=== PATIENT | female | born 1950 | race Hispanic/Latino ===

== ENCOUNTER 2018-09-11 13:33 | Emergency (ER) | payer BC | END 2018-09-11 16:10 | disposition home or self-care (01) | LOC: ERS 13:33 | DX: H53.9 Unspecified visual disturbance (principal); J45.909 Unspecified asthma, uncomplicated; F32.9 Major depressive disorder, single episode, unspecified; Z79.899 Other long term (current) drug therapy | CPT/HCPCS: 99283 ==

== ENCOUNTER 2020-06-14 07:02 | Outpatient (CLI) | payer BC, MEDICARE ==
[2020-06-14 18:44] LABS: Bilirubin Neg (Negative); Blood, Urine Negative (Negative); Glucose, Urine (Dipstick) Normal (Negative); Ketone, Urine 5 mg/dL (Negative); Leukocyte Negative (Negative); Nitrite Negative (Negative); Protein, Urine (Dipstick) Negative (Neg-Trace); Specific Gravity, Urine 1.015 (1.002-1.036); Urobilinogen Normal mg/dL (Less than 2); pH, Urine 6.5 (5.0-9.0)
[2020-06-14 18:59] LABS: #Basophils 0.1 10x3/uL (0.0-0.2); #Eosinphils 0.2 10x3/uL (0.0-0.5); #Monocytes 0.9 10x3/uL (0.0-1.1); #Neutrophils 4.5 10x3/uL (1.5-8.4); %Basophils 0.8 % (0.0-2.0); %Eosinophils 3.1 % (0.0-6.0); %Lymphocytes 27.4 % (18.0-47.0); %Monocytes 11.2 % (0.0-10.0); %Neutrophils 56.6 % (40.0-75.0); Hemoglobin 13.2 g/dL (12.0-16.0); Mean Corpuscular Hemoglobin 29.9 PG (27.0-33.0); Mean Corpuscular Volume 90.5 fl (80.0-100.0); Mean Platelet Volume 9.7 fl (7.4-10.4); Platelet Count 291 10x3/uL (130-400); RBC Distribution Width 14.2 % (11.5-14.5); Red Blood Cell (RBC) Count 4.42 10x6/uL (3.90-5.20); White Blood Cell (WBC) Count 7.9 10x3/uL (4.5-11.0)
[2020-06-14 19:06] LABS: Bacteria/HPF 1+ HPF (None Seen); RBC/HPF 0-3 HPF (0-3); WBC/HPF 0-3 HPF (0-3)
[2020-06-14 19:07] LABS: Mucous/LPF Rare LPF (<2+)
[2020-06-14 19:15] LABS: Anion Gap 19 mmol/L (10-20); BUN (Urea Nitrogen) 16 mg/dL (9.8-20.1); Calc. Creatinine Clearance 0 mL/min (70-130); Calcium 9.3 mg/dL (7.8-10.44); Carbon Dioxide 23 mmol/L (23-31); Chloride 102 mmol/L (98-107); Estimated GFR-MDRD 69; Glucose 112 mg/dL (80-115); Potassium 4.2 mmol/L (3.5-5.1); Sodium 140 mmol/L (136-145)
[2020-06-14 19:18] LABS: Prothrombin Time 10.3 sec (9.5-12.1)
[2020-06-15 14:44] LABS: SARS-CoV-2 MS2 Positive; SARS-CoV-2 N Gene Negative; SARS-CoV-2 S Gene Negative; SARS-CoV-2 by NAA Not Detected (NotDetected); SARS-CoV-2 orf1ab Negative
--- NOTE | 2020-06-18 20:53 | EKG ---
Test Reason : PREOP Blood Pressure : / mmHG Vent. Rate : 082 BPM Atrial Rate : 082 BPM P-R Int : 176 ms QRS Dur : 086 ms QT Int : 402 ms P-R-T Axes : 048 059 050 degrees QTc Int : 469 ms Normal sinus rhythm Low voltage QRS Borderline ECG No previous ECGs available Confirmed by Jordana RAMÍREZ ([id number]) on 06/18/2020 8:52:41 PM Referred By: Sana MILLER Confirmed By:Jordana RAMÍREZ
== END 2020-06-14 07:03 | disposition home or self-care (01) ==
LOC: LABBT 07:02
PROVIDERS: ATTEND Orthopaedic Surgery
DX: Z01.812 Encounter for preprocedural laboratory examination (principal); Z20.828 Contact with and (suspected) exposure to other viral communicable diseases; M16.12 Unilateral primary osteoarthritis, left hip
CPT/HCPCS: 80048; 81001; 85025; 85610; 86850; 86900; 86901; 87081; 87086; 87635; 93005; 93010; U0003

== ENCOUNTER 2020-06-14 18:00 | Inpatient (IN) | payer BC, MEDICARE ==
--- NOTE | 2020-06-16 10:04 | HP ---
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 The pain is now interfering with day-to-day activities including walking, getting dressed, and working. She has had a previous right total hip replacement in 2015 with good results. PAST MEDICAL HISTORY: The patient is otherwise in good health. 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 She does have a history of depression and reflux. CURRENT MEDICATIONS: Include, 1. Gabapentin. 2. Celebrex. 3. Cymbalta. 4. Pantoprazole. 5. Hydrochlorothiazide as needed. 6. Bupropion. ALLERGIES: SHE HAS NO KNOWN ALLERGIES. FAMILY HISTORY: Otherwise unremarkable. SOCIAL HISTORY: Otherwise unremarkable. REVIEW OF SYSTEMS: Otherwise unremarkable. PHYSICAL EXAMINATION: GENERAL: Reveals a healthy female. HEENT: Unremarkable. NECK: Supple. CHEST: Clear. HEART: Regular rate and rhythm. ABDOMEN: Soft, nontender. PELVIC: Deferred. RECTAL: Deferred. BREASTS: Deferred. EXTREMITIES: Pertinent findings related to the left hip. Her leg lengths are equal. There is tenderness in the anterior hip. There is a left antalgic gait. There is decreased range of motion of the left hip and pain with internal rotation. Neurovascular exam is intact. DIAGNOSTIC STUDIES: X-rays of the left hip reveal severe DJD with progression from previous x-rays with essentially no joint space remaining. IMPRESSION: 1. Degenerative arthritis of left hip. 2. Status post right total hip replacement. PLAN: Left total hip replacement. The nature of the surgery, length of recovery, and potential complications such as infection, loss of motion, incomplete relief, leg-length discrepancy, possible transfusion, neurovascular injury, and need for revision have been discussed in detail. Job ID: [id number]
[2020-06-16 12:38] VITALS: BMI 41.2
[2020-06-19] MEDS ORDERED: Vancomycin 1.5 GRAM/300 ML BAG ONE (07:57)
[2020-06-19] MEDS ORDERED: Sodium Chloride 0.9% 100 ML ONE (07:57)
[2020-06-19] MEDS ORDERED: Tranexamic Acid 1,000 MG/10 ML VIAL ONE ×2 (07:57→11:44)
[2020-06-19] MEDS ORDERED: Midazolam HCl 2 mg/2 ml Vial ONE (08:16)
[2020-06-19] MEDS ORDERED: Fentanyl 100 MCG/2 ML VIAL ONE ×4 (08:16→11:51)
[2020-06-19] MEDS ORDERED: HYDROcodone/Acetaminophen 5/325 mg Tablet PO PRN (09:30)
[2020-06-19] MEDS ORDERED: Bupivacaine 0.25% 10 ML VIAL EPIDURAL PRN (09:30)
[2020-06-19] MEDS ORDERED: Naloxone HCl 0.4 mg/ml Vial IVP PRN (09:30)
[2020-06-19] MEDS ORDERED: Naloxone HCl 0.4 mg/ml Vial IV PRN (09:30)
[2020-06-19] MEDS ORDERED: Ondansetron PF 4 MG/2 ML Vial IVP PRN ×2 (09:30→11:36)
[2020-06-19] MEDS ORDERED: diphenhydrAMINE 50 MG/ML VIAL IVP PRN (09:30)
[2020-06-19] MEDS ORDERED: Zolpidem Tartrate 5 MG TAB PO PRN ×2 (09:30→11:36)
[2020-06-19] MEDS ORDERED: diphenhydrAMINE 50 MG/ML VIAL IM PRN (09:30)
[2020-06-19] MEDS ORDERED: fentaNYL Citrate/PF 500 MCG, Bupivacaine 10 ML in Sodium Chloride 0.9% 80 ML EPIDURAL SCH (09:30)
[2020-06-19] MEDS ORDERED: Promethazine HCl 25 MG SUPP PR PRN (09:30)
[2020-06-19] MEDS ORDERED: Promethazine HCl 25 MG/ML VIAL IM PRN ×2 (09:30→11:59)
[2020-06-19] MEDS ORDERED: traMADol HCl 50 MG TAB PO PRN ×3 (09:30→11:36)
[2020-06-19] MEDS ORDERED: Hydrocerin (Eucerin) Cream 120 gm Jar TOP PRN (09:30)
[2020-06-19] MEDS ORDERED: Fentanyl 100 MCG/2 ML VIAL SLOW IVP PRN ×2 (11:36)
[2020-06-19] MEDS ORDERED: Acetaminophen 325 MG TAB PO PRN (11:36)
[2020-06-19] MEDS ORDERED: Promethazine HCl 25 MG/ML VIAL SLOW IVP PRN ×2 (11:36→11:59)
[2020-06-19] MEDS ORDERED: diphenhydrAMINE 25 MG CAP PO PRN (11:36)
[2020-06-19] MEDS ORDERED: HYDROcodone/Acetaminophen 10/325 mg Tablet PO PRN ×2 (11:36)
[2020-06-19] MEDS ORDERED: Tranexamic Acid 1,000 MG in Sodium Chloride 0.9% 100 ML IVPB SCH ×2 (11:36→12:00)
[2020-06-19] MEDS ORDERED: Hydrochlorothiazide 25 MG TAB PO PRN (11:36)
[2020-06-19] MEDS ORDERED: Ropivacaine 0.2% HCl/PF 20 ML ONE (11:37)
[2020-06-19] MEDS ORDERED: Sodium Chloride 0.9% 10 ML ONE (11:55)
[2020-06-19] MEDS ORDERED: HYDROmorphone 2 MG/ML VIAL SLOW IVP PRN (11:59)
[2020-06-19] MEDS ORDERED: Ondansetron HCl/PF 4 MG/2 ML Vial IVP PRN (11:59)
[2020-06-19] MEDS ORDERED: Ketorolac Tromethamine 30 MG/ML VIAL IVP SCH (12:00)
[2020-06-19] MEDS ORDERED: Ondansetron PF 4 MG/2 ML Vial ONE (12:01)
[2020-06-19] MEDS ORDERED: Lidocaine 1% PF 5 ML VIAL ONE (12:01)
[2020-06-19] MEDS ORDERED: PROPOFOL 200 MG/20 ML VIAL ONE (12:01)
[2020-06-19] MEDS ORDERED: EPHEDRINE 25 MG/5 ML SYRINGE ONE (12:01)
[2020-06-19] MEDS ORDERED: Rocuronium Bromide 10 MG/ML (10ML VIAL) ONE (12:01)
[2020-06-19] MEDS ORDERED: Dexamethasone 20 MG/5 ML VIAL ONE (12:01)
[2020-06-19] MEDS ORDERED: Lidocaine 1.5% w/Epi 1:200K 30 ML VIAL (Epid Use) ONE (12:01)
--- NOTE | 2020-06-19 12:21 | RAD ---
XR Hip Lt 2-3 View HISTORY: Postop total hip replacement COMPARISON: 12/18/2014 FINDINGS: There are recent postoperative changes of left total hip arthroplasty in good position and alignment.
[2020-06-19] MEDS ORDERED: Aspirin 81 mg Enteric Coated Tablet PO SCH (14:30)
[2020-06-19] MEDS ORDERED: Gabapentin 300 MG CAP PO SCH (14:30)
[2020-06-19] MEDS ORDERED: Bupropion 150 MG XL TAB PO SCH (14:30)
--- NOTE | 2020-06-19 14:45 | OP ---
DATE OF PROCEDURE: 06/19/2020 [employer]ICE INSTRUCTOR: CRYSTAL Sharma. The historian research assistant co-surgeon was present through the entire procedure and was responsible for providing exposure, tissue retraction, and any necessary limb or tissue manipulation required to obtain necessary reduction or hardware placement. The historian research assistant co-surgeon also provided bleeding control, tissue closure, and suturing in conjunction with the primary surgeon. ANESTHESIA: General plus epidural. PREOPERATIVE DIAGNOSIS: Degenerative arthritis, left hip. POSTOPERATIVE DIAGNOSIS: Degenerative arthritis, left hip. PROCEDURE PERFORMED: Left total hip replacement with uncemented [place] Trident II Tritanium acetabular shell 52 mm with X3 polyethylene liner and uncemented Mary Anne Accolade II femoral stem size #6 with 132-degree neck angle trunnion and -5 mm neck length 36 mm delta ceramic femoral head. DESCRIPTION OF PROCEDURE: After satisfactory anesthesia was induced in supine position, sequential compression device was placed on the nonoperative leg throughout the procedure. The patient was then placed in lateral decubitus position and this position held with hip positioning device. The patient was then prepped and draped in routine manner. The left hip was approached through a lateral curvilinear incision centered over the greater trochanter, carried down to subcutaneous tissues and bleeding points were controlled with Bovie cautery. IT band and gluteal fascia were split inline with skin incision. A direct lateral approach to the hip joint was accomplished by dividing the anterior third of the gluteus medius and minimus tendons with the Bovie cautery and reflecting this as a single flap anteriorly and medially along with the vastus lateralis. Anterior capsulectomy was performed. The hip was dislocated anteriorly. There was marked degenerative arthritis of the hip with large areas of exposed bone. Femoral neck was osteotomized with oscillating saw using a trial prosthesis as a guide. The acetabulum was exposed and cleaned of all soft tissue and debris and rim osteophytes. The acetabulum was then reamed in a sequence with power reamers to a total of 52 mm down to bleeding subchondral bone. It was felt that a 52 mm Trident II Tritanium shell could be placed in a press-fit fashion. The permanent component was then hammered in position and there was good fit and stability of the outer shell. The permanent X3 polyethylene liner was then snapped in position and the proximal femur exposed. It was opened with a box osteotome and rasped in sequence to accept a #6 Accolade II femoral rasp. During the last reaming, the very tip of the greater trochanter fractured. This did not appear to cause any significant instability or her loss of the abductor continuity and it was still attached and I elected to leave it in place as is, I think this would heal. After placement of the #6 Accolade II femoral rasp, the 132-degree neck angle trunnion was placed on the rasp and trial reduction with a 36 mm -5 mm neck length femoral head was done and the hip reduced and found to be stable with maintenance of leg length. The hip was dislocated again anteriorly and the trial components were removed. The permanent #6 Accolade II femoral stem was then placed in position and there was again good fit and stability of the component. The permanent -5 mm neck length 36 mm delta ceramic femoral head was then placed on the trunnion and the hip again reduced and found to be stable. The hip was copiously irrigated with pulsatile lavage. The abductors were repaired with interrupted #2 Vicryl. IT band and gluteal fascia were closed with interrupted #2 Vicryl and running #2 Quill. Subcutaneous tissues were closed with interrupted #2 Vicryl and a running 0 Quill suture. The skin was closed with a running subcuticular 3-0 Monoderm and SurgiSeal skin adhesive. Sterile dressing was applied and the patient turned to the supine position and a pillow placed between her legs. Sequential compression device was applied to the operated leg and she was awakened and taken to the recovery room in stable condition. There were no apparent intraoperative complications. Estimated blood loss was approximately 400 mL. Job ID: [id number]
[2020-06-19] MEDS ORDERED: Meperidine HCl/PF 25 MG/ML VIAL ONE (15:06)
[2020-06-19] MEDS ORDERED: CEFAZOLIN 2 GM in Premix Bag 1 BAG IVPB SCH (16:00)
[2020-06-19] MEDS: Ketorolac Tromethamine 30 MG/ML VIAL IVP SCH ×3 (17:20→22:59)
[2020-06-19] MEDS: Sodium Chloride 0.9% 1,000 ML IV SCH ×2 (17:20→20:39)
[2020-06-19] MEDS: diphenhydrAMINE 25 MG CAP PO PRN (20:20)
[2020-06-19] MEDS: Aspirin 81 mg Enteric Coated Tablet PO SCH (20:20)
[2020-06-19] MEDS ORDERED: Vancomycin 1.5 GRAM/300 ML BAG 1.5 GM in Premix Bag 1 BAG IVPB SCH (21:00)
[2020-06-19] MEDS: CEFAZOLIN 2 GM in Premix Bag 1 BAG IVPB SCH (22:57)
[2020-06-20] MEDS: diphenhydrAMINE 25 MG CAP PO PRN ×5 (03:07→21:45)
[2020-06-20] MEDS: HYDROcodone/Acetaminophen 5/325 mg Tablet PO PRN ×4 (03:07→21:45)
[2020-06-20] MEDS: Ketorolac Tromethamine 30 MG/ML VIAL IVP SCH ×3 (05:16→17:36)
[2020-06-20] MEDS: CEFAZOLIN 2 GM in Premix Bag 1 BAG IVPB SCH (05:16)
[2020-06-20 05:35] LABS: Hemoglobin 10.2 g/dL (12.0-16.0); Mean Corpuscular HGB CONC 33.6 g/dL (32.0-36.0); Mean Corpuscular Hemoglobin 31.3 pg (27.0-31.0); Mean Corpuscular Volume 93.2 fL (78.0-98.0); Mean Platelet Volume 7.3 fL (7.4-10.4); Platelet Count 244 thou/uL (130-400); RBC Distribution Width 13.1 % (11.5-14.5); Red Blood Cell (RBC) Count 3.27 mill/uL (4.20-5.40); White Blood Cell (WBC) Count 12.9 thou/uL (4.8-10.8)
[2020-06-20] MEDS: Senokot S 8.6-50 MG TAB PO SCH ×2 (07:39→20:45)
[2020-06-20] MEDS: Aspirin 81 mg Enteric Coated Tablet PO SCH ×2 (07:39→20:45)
[2020-06-20] MEDS: Gabapentin 300 MG CAP PO SCH (07:40)
[2020-06-20] MEDS: Multivitamin W/ Minerals 1 TAB PO SCH (07:40)
[2020-06-20] MEDS: Ferrous Gluconate 324 MG TAB PO SCH ×2 (07:40→17:35)
[2020-06-20] MEDS: Bupropion 150 MG XL TAB PO SCH (07:40)
[2020-06-20] MEDS: Sodium Chloride 0.9% 1,000 ML IV SCH ×2 (07:41→18:29)
[2020-06-21] MEDS: Ketorolac Tromethamine 30 MG/ML VIAL IVP SCH ×2 (00:26→05:45)
[2020-06-21] MEDS: Sodium Chloride 0.9% 1,000 ML IV SCH ×3 (00:39→21:50)
[2020-06-21] MEDS: HYDROcodone/Acetaminophen 5/325 mg Tablet PO PRN (03:35)
[2020-06-21] MEDS: diphenhydrAMINE 25 MG CAP PO PRN ×2 (03:35→12:28)
--- NOTE | 2020-06-21 09:00 | PRG ---
DATE OF SERVICE: 06/21/2020 SUBJECTIVE: Felicia is a 70-year-old female, postop day 2 from a left total hip arthroplasty. She has been very slow to progress with ambulation and independence and she requires [id number] assist, but she did ambulate 3 steps yesterday with a rolling walker, but is very difficult for her. She has requested placement at [facility] and Case Management has been notified of this and the process is moving forward. OBJECTIVE: Temperature 98.5, pulse 90, respiratory rate 16, O2 saturation is 93% on room air, blood pressure 105/63. She is alert and oriented to person, place, time, situation. Responsive and appropriate with examiner. Her incision is clean. No strikethrough. No erythema. No malrotation or shortening. LABORATORY DATA: Hemoglobin and hematocrit 10.2 and 30.5 as of yesterday. IMPRESSION: 1. A 70-year-old female, postop day 2, left total hip arthroplasty. 2. Slow to progress and reach ADLs and independence. PLAN: 1. Continue to monitor her for pain control. Continue to monitor for bleeding and wound site also, reinforced with Case Management placement options as she is not stable for home discharge at this time due to inability to reach ADLs and independence. 2. Continue to follow. Job ID: [id number]
[2020-06-21] MEDS: Gabapentin 300 MG CAP PO SCH (09:12)
[2020-06-21] MEDS: Aspirin 81 mg Enteric Coated Tablet PO SCH ×2 (09:12→20:52)
[2020-06-21] MEDS: Ferrous Gluconate 324 MG TAB PO SCH ×2 (09:12→17:45)
[2020-06-21] MEDS: Senokot S 8.6-50 MG TAB PO SCH ×2 (09:13→20:52)
[2020-06-21] MEDS: Bupropion 150 MG XL TAB PO SCH (09:13)
[2020-06-21] MEDS: Multivitamin W/ Minerals 1 TAB PO SCH (09:14)
[2020-06-21] MEDS ORDERED: HYDROcodone/Acetaminophen 10/325 mg Tablet PO PRN (09:29)
[2020-06-21] MEDS: HYDROcodone/Acetaminophen 10/325 mg Tablet PO PRN ×3 (12:23→20:58)
[2020-06-21] MEDS: CeleCOXIB 100 MG CAP PO SCH (20:52)
[2020-06-22] MEDS: HYDROcodone/Acetaminophen 10/325 mg Tablet PO PRN ×3 (06:39→20:00)
[2020-06-22] MEDS: Senokot S 8.6-50 MG TAB PO SCH ×2 (08:27→20:00)
[2020-06-22] MEDS: CeleCOXIB 100 MG CAP PO SCH ×2 (08:27→20:00)
[2020-06-22] MEDS: Bupropion 150 MG XL TAB PO SCH (08:28)
[2020-06-22] MEDS: Aspirin 81 mg Enteric Coated Tablet PO SCH ×2 (08:28→20:00)
[2020-06-22] MEDS: Multivitamin W/ Minerals 1 TAB PO SCH (08:28)
[2020-06-22] MEDS: Gabapentin 300 MG CAP PO SCH (08:28)
[2020-06-22] MEDS: Ferrous Gluconate 324 MG TAB PO SCH ×2 (08:28→17:17)
[2020-06-23] MEDS: HYDROcodone/Acetaminophen 10/325 mg Tablet PO PRN ×2 (06:41→14:27)
[2020-06-23] MEDS: Gabapentin 300 MG CAP PO SCH (08:12)
[2020-06-23] MEDS: Bupropion 150 MG XL TAB PO SCH (08:12)
[2020-06-23] MEDS: Aspirin 81 mg Enteric Coated Tablet PO SCH (08:12)
[2020-06-23] MEDS: Senokot S 8.6-50 MG TAB PO SCH (08:13)
[2020-06-23] MEDS: Multivitamin W/ Minerals 1 TAB PO SCH (08:13)
[2020-06-23] MEDS: CeleCOXIB 100 MG CAP PO SCH (08:13)
[2020-06-23] MEDS: Ferrous Gluconate 324 MG TAB PO SCH (08:13)
[2020-06-23 12:05] VITALS: BP 101/67; TEMP 98
== END 2020-06-23 15:00 | DRG 470 ==
LOC: SJJU 06-19 07:01
PROVIDERS: ADMIT Orthopaedic Surgery; ATTEND Orthopaedic Surgery
PROC: 0SRB04Z Replacement of Left Hip Joint with Ceramic on Polyethylene Synthetic Substitute, Open Approach (ICD-10-PCS; principal; 2020-06-19)
DX: M16.12 Unilateral primary osteoarthritis, left hip (principal); Z79.899 Other long term (current) drug therapy; Z90.49 Acquired absence of other specified parts of digestive tract; Z98.51 Tubal ligation status; Z96.641 Presence of right artificial hip joint; E78.5 Hyperlipidemia, unspecified
CPT/HCPCS: 36415; 85027; J0690; J1100; J1885; J2001; J2175; J2250; J2405; J2704; J2795; J3010; J3370; J3490; Q0163

== ENCOUNTER 2020-07-06 11:27 | Emergency (ER) | payer BC, MEDICARE ==
[2020-07-06] MEDS ORDERED: Morphine 4 MG/ML VIAL ONE (12:29)
--- NOTE | 2020-07-06 12:36 | CT ---
CT PELVIS WITHOUT CONTRAST: HISTORY: The patient had a left hip replacement on 06/19/2020. Left hip swelling has increased. FINDINGS/IMPRESSION: There are postop changes of bilateral hip arthroplasties in good position and alignment. There is ar tifact which reduces the sensitivity of the exam. A large soft tissue mass is seen in the lateral as pect of the left hip most likely hematoma. No free air or free fluid is seen in the pelvis. There is colonic diverticulosis. Uterus is present . There are degenerative changes in the lower lumbar spine. POS: KATHYA
[2020-07-06 12:56] LABS: #Eosinphils 0.3 thou/uL (0.0-0.7); #Lymphocytes 1.5 thou/uL (1.20-3.40); #Monocytes 0.9 thou/uL (0.11-0.59); #Neutrophils 3.7 thou/uL (1.40-6.50); %Basophils 0.8 % (0.0-1.0); %Eosinophils 4.4 % (0.0-10.0); %Lymphocytes 23.6 % (21.0-51.0); %Monocytes 13.6 % (0.0-10.0); %Neutrophils 57.7 % (42.0-75.0); Hemoglobin 9.8 g/dL (12.0-16.0); Mean Corpuscular HGB CONC 31.9 g/dL (32.0-36.0); Mean Corpuscular Volume 94.2 fL (78.0-98.0); Mean Platelet Volume 6.7 fL (7.4-10.4); Platelet Count 472 thou/uL (130-400); RBC Distribution Width 13.3 % (11.5-14.5); Red Blood Cell (RBC) Count 3.25 mill/uL (4.20-5.40); White Blood Cell (WBC) Count 6.4 thou/uL (4.8-10.8)
--- NOTE | 2020-07-06 13:01 | ULT ---
VENOUS DOPPLER ULTRASOUND OF THE LEFT LOWER EXTREMITY: HISTORY: Left lower extremity pain and swelling. Left hip replacement on 06/19/2020. TECHNIQUE: Croft scale ultrasound with color flow and spectral Doppler imaging of the deep venous system of the l eft lower extremity was performed. FINDINGS: There is good flow, compression, and augmentation noted in the left common femoral, femoral, deep fem oral, popliteal, posterior tibial, and greater saphenous veins. IMPRESSION: No evidence of deep vein thrombosis in the left lower extremity. POS: KATHYA
[2020-07-06 13:17] LABS: ALT (SGPT) 12 U/L (8-55); AST (SGOT) 17 U/L (5-34); Albumin 3.1 g/dL (3.4-4.8); Alkaline Phosphatase 122 U/L (40-110); Anion Gap 16 mmol/L (10-20); BUN (Urea Nitrogen) 8 mg/dL (9.8-20.1); Bilirubin, Total 0.3 mg/dL (0.2-1.2); Calc. Creatinine Clearance 0 mL/min (70-130); Calcium 8.4 mg/dL (7.8-10.44); Carbon Dioxide 24 mmol/L (23-31); Chloride 106 mmol/L (98-107); Estimated GFR-MDRD 83; Globulin 2.9 g/dL (2.4-3.5); Glucose 106 mg/dL (80-115); Sodium 142 mmol/L (136-145)
== END 2020-07-06 13:16 | disposition home or self-care (01) ==
LOC: ERS 11:27
DX: M96.840 Postprocedural hematoma of a musculoskeletal structure following a musculoskeletal system procedure (principal); J45.909 Unspecified asthma, uncomplicated; F32.9 Major depressive disorder, single episode, unspecified; Z79.01 Long term (current) use of anticoagulants; Z79.899 Other long term (current) drug therapy
CPT/HCPCS: 36415; 72192; 80053; 85025; 96374; J2270

== ENCOUNTER 2020-10-20 14:10 | Inpatient (IN) | payer BC, MEDICARE ==
[~2020-10-20 14:10] MED LIST: Iopamidol-370 76% 500 ML 1 ML ONE
[2020-10-20] MEDS ORDERED: Fentanyl 100 MCG/2 ML VIAL ONE (14:28)
[2020-10-20 15:11] LABS: #Basophils 0.1 thou/uL (0.0-0.2); #Eosinphils 0.3 thou/uL (0.0-0.7); #Lymphocytes 1.6 thou/uL (1.20-3.40); #Neutrophils 8.2 thou/uL (1.40-6.50); %Basophils 0.6 % (0.0-1.0); %Eosinophils 2.3 % (0.0-10.0); %Lymphocytes 14.5 % (21.0-51.0); %Monocytes 8.9 % (0.0-10.0); %Neutrophils 73.7 % (42.0-75.0); Hemoglobin 10.6 g/dL (12.0-16.0); Mean Corpuscular HGB CONC 32.3 g/dL (32.0-36.0); Mean Corpuscular Hemoglobin 28.5 pg (27.0-31.0); Mean Corpuscular Volume 88.2 fL (78.0-98.0); Mean Platelet Volume 6.7 fL (7.4-10.4); Platelet Count 314 thou/uL (130-400); RBC Distribution Width 16.6 % (11.5-14.5); Red Blood Cell (RBC) Count 3.72 mill/uL (4.20-5.40); White Blood Cell (WBC) Count 11.2 thou/uL (4.8-10.8)
[2020-10-20] MEDS ORDERED: Morphine 4 MG/ML VIAL ONE (15:33)
[2020-10-20] MEDS ORDERED: Ondansetron PF 4 MG/2 ML Vial ONE (15:33)
[2020-10-20] MEDS ORDERED: Ketorolac Tromethamine 30 MG/ML VIAL ONE (15:33)
[2020-10-20 15:36] LABS: ALT (SGPT) 11 U/L (8-55); AST (SGOT) 14 U/L (5-34); Albumin 3.5 g/dL (3.4-4.8); Alkaline Phosphatase 135 U/L (40-110); Anion Gap 14 mmol/L (10-20); BUN (Urea Nitrogen) 18 mg/dL (9.8-20.1); Bilirubin, Total 0.5 mg/dL (0.2-1.2); Calc. Creatinine Clearance 0 mL/min (70-130); Calcium 8.2 mg/dL (7.8-10.44); Carbon Dioxide 25 mmol/L (23-31); Chloride 107 mmol/L (98-107); Globulin 2.6 g/dL (2.4-3.5); Glucose 118 mg/dL (80-115); Potassium 3.8 mmol/L (3.5-5.1); Protein, Total 6.1 g/dL (5.8-8.1); Sodium 142 mmol/L (136-145)
[2020-10-20] MEDS ORDERED: Dextrose 5% in Water 1,000 ML IV PRN (15:45)
[2020-10-20] MEDS ORDERED: Ondansetron ODT 4 MG TAB PO PRN (15:45)
[2020-10-20] MEDS ORDERED: Dextrose 50% Abboject 50 ML SYRINGE SLOW IVP PRN (15:45)
[2020-10-20] MEDS ORDERED: Boostrix 0.5 ML (Tdap) VIAL ONE (15:45)
[2020-10-20] MEDS ORDERED: Ondansetron PF 4 MG/2 ML Vial IVP PRN (15:45)
[2020-10-20] MEDS ORDERED: hydrALAZINE 20 MG/ML VIAL SLOW IVP PRN (15:45)
[2020-10-20] MEDS ORDERED: traMADol HCl 50 MG TAB PO SCH (16:00)
[2020-10-20] MEDS ORDERED: CEFAZOLIN 2 GM in Premix Bag 1 BAG IVPB SCH (16:15)
[2020-10-20] MEDS: Morphine 2 MG/ML VIAL SLOW IVP PRN ×2 (18:05→20:48)
[2020-10-20] MEDS: Acetaminophen 500 MG TAB PO SCH ×2 (18:08→20:47)
[2020-10-20] MEDS ORDERED: HYDROcodone/Acetaminophen 5/325 mg Tablet PO PRN (19:37)
[2020-10-20] MEDS: Famotidine 20 MG TAB PO SCH (20:47)
[2020-10-20] MEDS: Gabapentin 100 MG CAP PO SCH (20:47)
[2020-10-20] MEDS: Ketorolac Tromethamine 30 MG/ML VIAL IVP SCH (20:48)
[2020-10-20] MEDS ORDERED: Famotidine 20 MG TAB PO SCH (21:00)
[2020-10-21] MEDS: Sodium Chloride 0.9% 1,000 ML IV SCH ×3 (00:17→17:42)
[2020-10-21] MEDS: Morphine 2 MG/ML VIAL SLOW IVP PRN ×4 (00:17→21:27)
[2020-10-21 01:50] LABS: SARS-CoV-2 PCR by NAA Not Detected (NotDetected)
[2020-10-21] MEDS: Ketorolac Tromethamine 30 MG/ML VIAL IVP SCH ×4 (03:59→20:40)
[2020-10-21] MEDS: Acetaminophen 500 MG TAB PO SCH ×4 (04:00→21:28)
[2020-10-21 05:47] LABS: Hemoglobin 8.9 g/dL (12.0-16.0); Mean Corpuscular HGB CONC 32.4 g/dL (32.0-36.0); Mean Corpuscular Hemoglobin 29.4 pg (27.0-31.0); Mean Corpuscular Volume 90.5 fL (78.0-98.0); Mean Platelet Volume 7.1 fL (7.4-10.4); Platelet Count 225 thou/uL (130-400); RBC Distribution Width 16.4 % (11.5-14.5); Red Blood Cell (RBC) Count 3.03 mill/uL (4.20-5.40); White Blood Cell (WBC) Count 7.1 thou/uL (4.8-10.8)
[2020-10-21 06:07] LABS: Anion Gap 14 mmol/L (10-20); BUN (Urea Nitrogen) 17 mg/dL (9.8-20.1); Calc. Creatinine Clearance 114 mL/min (70-130); Calcium 7.7 mg/dL (7.8-10.44); Carbon Dioxide 20 mmol/L (23-31); Chloride 107 mmol/L (98-107); Glucose 126 mg/dL (80-115); Magnesium 1.8 mg/dL (1.6-2.6); Potassium 3.8 mmol/L (3.5-5.1); Sodium 137 mmol/L (136-145)
[2020-10-21] MEDS ORDERED: Fentanyl 100 MCG/2 ML VIAL ONE ×4 (07:01→12:10)
[2020-10-21] MEDS ORDERED: Lidocaine 2% Jelly 5 ML TUBE ONE (07:01)
[2020-10-21] MEDS ORDERED: Phenylephrine 10 MG/ML VIAL ONE (08:05)
[2020-10-21] MEDS ORDERED: PHENYLEPHRINE-NS 100 MCG/ML 10 ML SYRINGE ONE (08:12)
[2020-10-21] MEDS ORDERED: Ondansetron PF 4 MG/2 ML Vial ONE (08:12)
[2020-10-21] MEDS ORDERED: ePHEDrine 50 MG/ML VIAL ONE (08:12)
[2020-10-21] MEDS ORDERED: Rocuronium Bromide 10 MG/ML (10ML VIAL) ONE (08:12)
[2020-10-21] MEDS ORDERED: Glycopyrrolate 0.2 MG/ML 5 ML SYRINGE ONE (08:12)
[2020-10-21] MEDS ORDERED: Dexamethasone 20 MG/5 ML VIAL ONE (08:12)
[2020-10-21] MEDS ORDERED: PROPOFOL 200 MG/20 ML VIAL ONE (08:12)
[2020-10-21] MEDS ORDERED: Lidocaine 1% PF 5 ML VIAL ONE (08:12)
[2020-10-21] MEDS ORDERED: Magnesium Sulfate 2 GM in Sodium Chloride 0.9% 100 ML IVPB SCH (09:00)
[2020-10-21] MEDS: Famotidine 20 MG TAB PO SCH ×2 (09:34→20:40)
[2020-10-21] MEDS: Gabapentin 100 MG CAP PO SCH ×2 (09:34→14:10)
[2020-10-21] MEDS ORDERED: Magnesium 2 GM/50 ML 2 GM in Premix Bag 1 BAG IVPB SCH (10:00)
[2020-10-21] MEDS: CEFAZOLIN 2 GM in Premix Bag 1 BAG IVPB SCH ×2 (14:12→21:28)
[2020-10-21] MEDS: Gabapentin 300 MG CAP PO SCH ×2 (15:58→20:41)
[2020-10-21] MEDS: Ferrous Sulfate 325 MG TAB PO SCH (16:00)
[2020-10-21] MEDS: Senokot S 8.6-50 MG TAB PO SCH (20:40)
[2020-10-21] MEDS: Ascorbic Acid 500 mg Chewable Tablet PO SCH (20:40)
[2020-10-21] MEDS: Enoxaparin Sodium 30 MG/0.3 ML SYRINGE SC SCH (20:40)
[2020-10-21] MEDS: Cyclobenzaprine 10 MG TAB PO PRN (21:28)
[2020-10-22] MEDS: Morphine 2 MG/ML VIAL SLOW IVP PRN (01:25)
[2020-10-22] MEDS: Sodium Chloride 0.9% 1,000 ML IV SCH ×2 (01:27→08:53)
[2020-10-22] MEDS: Acetaminophen 500 MG TAB PO SCH ×4 (03:34→21:00)
[2020-10-22] MEDS: Ketorolac Tromethamine 30 MG/ML VIAL IVP SCH ×2 (03:34→08:49)
[2020-10-22] MEDS: Cyclobenzaprine 10 MG TAB PO PRN (05:58)
[2020-10-22] MEDS: CEFAZOLIN 2 GM in Premix Bag 1 BAG IVPB SCH ×3 (05:59→21:05)
[2020-10-22 06:04] LABS: #Lymphocytes 1.2 thou/uL (1.20-3.40); #Monocytes 1.6 thou/uL (0.11-0.59); #Neutrophils 10.1 thou/uL (1.40-6.50); %Basophils 0.1 % (0.0-1.0); %Eosinophils 0.1 % (0.0-10.0); %Lymphocytes 9.3 % (21.0-51.0); %Monocytes 12.1 % (0.0-10.0); %Neutrophils 78.4 % (42.0-75.0); Hemoglobin 8.7 g/dL (12.0-16.0); Mean Corpuscular HGB CONC 32.4 g/dL (32.0-36.0); Mean Corpuscular Hemoglobin 29.4 pg (27.0-31.0); Mean Corpuscular Volume 90.7 fL (78.0-98.0); Mean Platelet Volume 7.2 fL (7.4-10.4); Platelet Count 204 thou/uL (130-400); RBC Distribution Width 15.5 % (11.5-14.5); Red Blood Cell (RBC) Count 2.96 mill/uL (4.20-5.40); White Blood Cell (WBC) Count 12.9 thou/uL (4.8-10.8)
[2020-10-22 06:16] LABS: Anion Gap 12 mmol/L (10-20); BUN (Urea Nitrogen) 16 mg/dL (9.8-20.1); Calc. Creatinine Clearance 118 mL/min (70-130); Calcium 7.6 mg/dL (7.8-10.44); Carbon Dioxide 24 mmol/L (23-31); Chloride 104 mmol/L (98-107); Glucose 127 mg/dL (80-115); Magnesium 2.2 mg/dL (1.6-2.6); Phosphorus 3.8 mg/dL (2.3-4.7); Potassium 4.4 mmol/L (3.5-5.1); Sodium 136 mmol/L (136-145)
[2020-10-22] MEDS: Ferrous Sulfate 325 MG TAB PO SCH ×2 (08:48→17:32)
[2020-10-22] MEDS: Gabapentin 300 MG CAP PO SCH ×3 (08:48→21:00)
[2020-10-22] MEDS: Senokot S 8.6-50 MG TAB PO SCH ×2 (08:49→21:00)
[2020-10-22] MEDS: Ascorbic Acid 500 mg Chewable Tablet PO SCH ×2 (08:49→21:00)
[2020-10-22] MEDS: Enoxaparin Sodium 30 MG/0.3 ML SYRINGE SC SCH ×2 (08:49→20:59)
[2020-10-22] MEDS: Famotidine 20 MG TAB PO SCH ×2 (08:49→21:00)
[2020-10-22] MEDS ORDERED: Ibuprofen 600 MG TAB PO PRN (13:33)
[2020-10-22] MEDS ORDERED: Hydrocortisone Sod Succ/PF 100 mg/2 ml Vial IVP SCH (17:45)
[2020-10-23] MEDS: Hydrocortisone Sod Succ/PF 100 mg/2 ml Vial IVP SCH ×3 (02:30→17:16)
[2020-10-23] MEDS: Cyclobenzaprine 10 MG TAB PO PRN ×2 (02:31→20:25)
[2020-10-23] MEDS: Acetaminophen 500 MG TAB PO SCH (02:31)
[2020-10-23] MEDS: CEFAZOLIN 2 GM in Premix Bag 1 BAG IVPB SCH (05:18)
[2020-10-23 05:38] LABS: #Eosinphils 0.1 thou/uL (0.0-0.7); #Lymphocytes 0.8 thou/uL (1.20-3.40); #Monocytes 0.9 thou/uL (0.11-0.59); #Neutrophils 6.9 thou/uL (1.40-6.50); %Basophils 0.1 % (0.0-1.0); %Eosinophils 0.7 % (0.0-10.0); %Lymphocytes 8.6 % (21.0-51.0); %Monocytes 10.7 % (0.0-10.0); %Neutrophils 79.9 % (42.0-75.0); Hemoglobin 7.1 g/dL (12.0-16.0); Mean Corpuscular HGB CONC 31.7 g/dL (32.0-36.0); Mean Corpuscular Volume 91.6 fL (78.0-98.0); Mean Platelet Volume 7.2 fL (7.4-10.4); Platelet Count 186 thou/uL (130-400); Red Blood Cell (RBC) Count 2.43 mill/uL (4.20-5.40); White Blood Cell (WBC) Count 8.7 thou/uL (4.8-10.8)
[2020-10-23] MEDS ORDERED: HYDROcodone/Acetaminophen 5/325 mg Tablet PO PRN (07:35)
[2020-10-23] MEDS: Acetaminophen 325 MG TAB PO SCH ×3 (08:32→20:20)
[2020-10-23] MEDS: traMADol HCl 50 MG TAB PO SCH ×3 (08:33→20:21)
[2020-10-23] MEDS: Ibuprofen 600 MG TAB PO SCH ×2 (08:33→17:16)
[2020-10-23] MEDS: Senokot S 8.6-50 MG TAB PO SCH ×2 (08:34→20:21)
[2020-10-23] MEDS: Famotidine 20 MG TAB PO SCH ×2 (08:34→20:21)
[2020-10-23] MEDS: Ascorbic Acid 500 mg Chewable Tablet PO SCH ×2 (08:34→20:21)
[2020-10-23] MEDS: Ferrous Sulfate 325 MG TAB PO SCH ×2 (08:35→17:16)
[2020-10-23] MEDS: Gabapentin 300 MG CAP PO SCH ×3 (08:35→20:22)
[2020-10-23] MEDS: HYDROcodone/Acetaminophen 5/325 mg Tablet PO PRN (09:31)
[2020-10-24] MEDS: Acetaminophen 325 MG TAB PO SCH ×4 (02:23→20:58)
[2020-10-24] MEDS: traMADol HCl 50 MG TAB PO SCH ×4 (02:24→20:58)
[2020-10-24] MEDS: Ibuprofen 600 MG TAB PO SCH ×3 (02:24→17:27)
[2020-10-24] MEDS: Hydrocortisone Sod Succ/PF 100 mg/2 ml Vial IVP SCH (02:25)
[2020-10-24 06:04] LABS: #Eosinphils 0.1 thou/uL (0.0-0.7); #Monocytes 0.8 thou/uL (0.11-0.59); #Neutrophils 5.2 thou/uL (1.40-6.50); %Basophils 0.3 % (0.0-1.0); %Lymphocytes 14.5 % (21.0-51.0); %Monocytes 11.5 % (0.0-10.0); %Neutrophils 71.8 % (42.0-75.0); Hemoglobin 7.8 g/dL (12.0-16.0); Mean Corpuscular HGB CONC 33.3 g/dL (32.0-36.0); Mean Corpuscular Hemoglobin 30.4 pg (27.0-31.0); Mean Corpuscular Volume 91.2 fL (78.0-98.0); Platelet Count 205 thou/uL (130-400); RBC Distribution Width 16.5 % (11.5-14.5); Red Blood Cell (RBC) Count 2.57 mill/uL (4.20-5.40); White Blood Cell (WBC) Count 7.2 thou/uL (4.8-10.8)
[2020-10-24 06:24] LABS: Anion Gap 9 mmol/L (10-20); BUN (Urea Nitrogen) 13 mg/dL (9.8-20.1); Calc. Creatinine Clearance 141 mL/min (70-130); Calcium 7.8 mg/dL (7.8-10.44); Carbon Dioxide 29 mmol/L (23-31); Chloride 107 mmol/L (98-107); Glucose 116 mg/dL (80-115); Magnesium 2.1 mg/dL (1.6-2.6); Phosphorus 2.4 mg/dL (2.3-4.7); Sodium 141 mmol/L (136-145)
[2020-10-24] MEDS ORDERED: Potassium Phosphate 15 MMOL in Sodium Chloride 0.9% 250 ML 250 ML IVPB SCH (07:45)
[2020-10-24] MEDS: Famotidine 20 MG TAB PO SCH (08:22)
[2020-10-24] MEDS: Ferrous Sulfate 325 MG TAB PO SCH ×2 (08:22→17:27)
[2020-10-24] MEDS: Ascorbic Acid 500 mg Chewable Tablet PO SCH ×2 (08:22→20:57)
[2020-10-24] MEDS: Senokot S 8.6-50 MG TAB PO SCH ×2 (08:22→20:57)
[2020-10-24] MEDS: Gabapentin 300 MG CAP PO SCH ×3 (08:23→20:57)
[2020-10-24] MEDS ORDERED: Enoxaparin Sodium 30 MG/0.3 ML SYRINGE SC SCH (09:00)
[2020-10-24] MEDS: HYDROcodone/Acetaminophen 5/325 mg Tablet PO PRN (10:35)
[2020-10-25] MEDS: Ibuprofen 600 MG TAB PO SCH (00:08)
[2020-10-25] MEDS: Cyclobenzaprine 10 MG TAB PO PRN (00:47)
[2020-10-25] MEDS: Acetaminophen 325 MG TAB PO SCH ×4 (03:19→21:30)
[2020-10-25] MEDS: traMADol HCl 50 MG TAB PO SCH ×4 (03:20→21:30)
[2020-10-25 05:57] LABS: #Basophils 0.1 thou/uL (0.0-0.2); #Eosinphils 0.5 thou/uL (0.0-0.7); #Lymphocytes 2.2 thou/uL (1.20-3.40); #Monocytes 1.1 thou/uL (0.11-0.59); #Neutrophils 4.5 thou/uL (1.40-6.50); %Basophils 0.6 % (0.0-1.0); %Eosinophils 5.6 % (0.0-10.0); %Lymphocytes 26.2 % (21.0-51.0); %Monocytes 13.5 % (0.0-10.0); %Neutrophils 54.1 % (42.0-75.0); Hemoglobin 7.7 g/dL (12.0-16.0); Mean Corpuscular HGB CONC 33.8 g/dL (32.0-36.0); Mean Corpuscular Hemoglobin 31.1 pg (27.0-31.0); Mean Platelet Volume 6.9 fL (7.4-10.4); Platelet Count 234 thou/uL (130-400); Red Blood Cell (RBC) Count 2.48 mill/uL (4.20-5.40); White Blood Cell (WBC) Count 8.3 thou/uL (4.8-10.8)
[2020-10-25 06:11] LABS: Anion Gap 11 mmol/L (10-20); BUN (Urea Nitrogen) 15 mg/dL (9.8-20.1); Calc. Creatinine Clearance 132 mL/min (70-130); Calcium 7.8 mg/dL (7.8-10.44); Carbon Dioxide 27 mmol/L (23-31); Chloride 104 mmol/L (98-107); Glucose 98 mg/dL (80-115); Potassium 3.7 mmol/L (3.5-5.1); Sodium 138 mmol/L (136-145)
[2020-10-25] MEDS ORDERED: Ibuprofen 600 MG TAB PO PRN (08:22)
[2020-10-25] MEDS: Ferrous Sulfate 325 MG TAB PO SCH ×2 (08:57→16:56)
[2020-10-25] MEDS: Ascorbic Acid 500 mg Chewable Tablet PO SCH ×2 (08:59→21:34)
[2020-10-25] MEDS: Senokot S 8.6-50 MG TAB PO SCH ×3 (09:00→21:29)
[2020-10-25] MEDS: Enoxaparin Sodium 30 MG/0.3 ML SYRINGE SC SCH ×2 (09:00→21:29)
[2020-10-25] MEDS: Gabapentin 300 MG CAP PO SCH ×3 (09:00→21:32)
[2020-10-25] MEDS: CeleCOXIB 100 MG CAP PO SCH (09:52)
[2020-10-25] MEDS: Bupropion 150 MG XL TAB PO SCH (09:53)
[2020-10-26] MEDS: Acetaminophen 325 MG TAB PO SCH ×4 (03:27→19:54)
[2020-10-26] MEDS: traMADol HCl 50 MG TAB PO SCH ×4 (03:28→19:53)
[2020-10-26 05:50] LABS: #Eosinphils 0.6 thou/uL (0.0-0.7); #Lymphocytes 2.2 thou/uL (1.20-3.40); #Monocytes 1.1 thou/uL (0.11-0.59); #Neutrophils 5.8 thou/uL (1.40-6.50); %Basophils 0.5 % (0.0-1.0); %Eosinophils 6.3 % (0.0-10.0); %Monocytes 11.6 % (0.0-10.0); %Neutrophils 59.6 % (42.0-75.0); Hemoglobin 7.9 g/dL (12.0-16.0); Mean Corpuscular HGB CONC 32.1 g/dL (32.0-36.0); Mean Corpuscular Hemoglobin 29.6 pg (27.0-31.0); Mean Corpuscular Volume 92.2 fL (78.0-98.0); Mean Platelet Volume 6.9 fL (7.4-10.4); Platelet Count 263 thou/uL (130-400); RBC Distribution Width 17.6 % (11.5-14.5); Red Blood Cell (RBC) Count 2.68 mill/uL (4.20-5.40); White Blood Cell (WBC) Count 9.8 thou/uL (4.8-10.8)
[2020-10-26] MEDS: Bupropion 150 MG XL TAB PO SCH (09:24)
[2020-10-26] MEDS: Ferrous Sulfate 325 MG TAB PO SCH ×2 (09:25→16:47)
[2020-10-26] MEDS: Ascorbic Acid 500 mg Chewable Tablet PO SCH ×2 (09:26→19:54)
[2020-10-26] MEDS: CeleCOXIB 100 MG CAP PO SCH (09:28)
[2020-10-26] MEDS: Gabapentin 300 MG CAP PO SCH ×3 (09:28→19:53)
[2020-10-26] MEDS: Senokot S 8.6-50 MG TAB PO SCH ×2 (09:29→19:54)
[2020-10-26] MEDS: Enoxaparin Sodium 30 MG/0.3 ML SYRINGE SC SCH ×2 (09:33→19:54)
[2020-10-26] MEDS: Cyclobenzaprine 10 MG TAB PO PRN ×2 (10:44→18:43)
[2020-10-27] MEDS: Acetaminophen 325 MG TAB PO SCH ×4 (01:52→20:34)
[2020-10-27] MEDS: traMADol HCl 50 MG TAB PO SCH ×4 (01:54→20:35)
[2020-10-27] MEDS: Bupropion 150 MG XL TAB PO SCH (09:44)
[2020-10-27] MEDS: Ascorbic Acid 500 mg Chewable Tablet PO SCH ×2 (09:45→20:35)
[2020-10-27] MEDS: Gabapentin 300 MG CAP PO SCH ×3 (09:45→20:35)
[2020-10-27] MEDS: Senokot S 8.6-50 MG TAB PO SCH ×2 (09:45→20:34)
[2020-10-27] MEDS: Ferrous Sulfate 325 MG TAB PO SCH ×2 (09:46→17:14)
[2020-10-27] MEDS: CeleCOXIB 100 MG CAP PO SCH (09:46)
[2020-10-27] MEDS: Enoxaparin Sodium 30 MG/0.3 ML SYRINGE SC SCH ×2 (11:55→20:34)
[2020-10-27] MEDS: Cyclobenzaprine 10 MG TAB PO PRN (18:09)
[2020-10-28] MEDS: Cyclobenzaprine 10 MG TAB PO PRN (02:04)
[2020-10-28] MEDS: traMADol HCl 50 MG TAB PO SCH ×4 (02:04→20:13)
[2020-10-28] MEDS: Acetaminophen 325 MG TAB PO SCH ×4 (02:05→20:12)
[2020-10-28] MEDS: Senokot S 8.6-50 MG TAB PO SCH ×2 (09:11→20:14)
[2020-10-28] MEDS: Ferrous Sulfate 325 MG TAB PO SCH ×2 (09:11→17:36)
[2020-10-28] MEDS: Ascorbic Acid 500 mg Chewable Tablet PO SCH ×2 (09:12→20:14)
[2020-10-28] MEDS: Bupropion 150 MG XL TAB PO SCH (09:12)
[2020-10-28] MEDS: CeleCOXIB 100 MG CAP PO SCH (09:13)
[2020-10-28] MEDS: Gabapentin 300 MG CAP PO SCH ×3 (09:13→20:14)
[2020-10-28] MEDS: Enoxaparin Sodium 30 MG/0.3 ML SYRINGE SC SCH ×2 (09:16→20:15)
[2020-10-29] MEDS: Acetaminophen 325 MG TAB PO SCH ×2 (02:55→08:34)
[2020-10-29] MEDS: traMADol HCl 50 MG TAB PO SCH ×2 (02:56→08:35)
[2020-10-29] MEDS: Senokot S 8.6-50 MG TAB PO SCH ×2 (08:33→20:19)
[2020-10-29] MEDS: Bupropion 150 MG XL TAB PO SCH (08:34)
[2020-10-29] MEDS: CeleCOXIB 100 MG CAP PO SCH (08:34)
[2020-10-29] MEDS: Ascorbic Acid 500 mg Chewable Tablet PO SCH ×2 (08:34→20:18)
[2020-10-29] MEDS: Ferrous Sulfate 325 MG TAB PO SCH ×2 (08:34→17:17)
[2020-10-29] MEDS: Gabapentin 300 MG CAP PO SCH ×3 (08:35→20:18)
[2020-10-29] MEDS: Enoxaparin Sodium 30 MG/0.3 ML SYRINGE SC SCH ×2 (08:45→20:18)
[2020-10-29] MEDS ORDERED: Acetaminophen/Codeine 30-300mg Tablet PO PRN (10:57)
[2020-10-29] MEDS: Acetaminophen/Codeine 30-300mg Tablet PO PRN (14:29)
[2020-10-30] MEDS: Acetaminophen/Codeine 30-300mg Tablet PO PRN ×3 (02:26→21:04)
[2020-10-30 02:37] LABS: Bacteria/HPF None Seen HPF (None Seen); Bilirubin Negative (Negative); Blood, Urine Negative (Negative); Clarity Clear (Clear); Glucose, Urine (Dipstick) Normal (Negative); Ketone, Urine Negative (Negative); Leukocyte Negative Leu/uL (Negative); Nitrite Negative (Negative); Protein, Urine (Dipstick) Negative (Neg-Trace); RBC/HPF 0-3 HPF (0-3); Specific Gravity, Urine 1.019 (1.002-1.036); Squamous Epithelial 0-3 HPF (0-3); Urobilinogen Normal mg/dL (Less than 2); WBC/HPF 0-3 HPF (0-3); pH, Urine 7.5 (5.0-9.0)
[2020-10-30 02:39] LABS: Urine Culture Reflex No No
[2020-10-30] MEDS: Enoxaparin Sodium 30 MG/0.3 ML SYRINGE SC SCH ×2 (08:17→20:11)
[2020-10-30] MEDS: CeleCOXIB 100 MG CAP PO SCH (08:18)
[2020-10-30] MEDS: Ascorbic Acid 500 mg Chewable Tablet PO SCH ×2 (08:18→20:12)
[2020-10-30] MEDS: Bupropion 150 MG XL TAB PO SCH (08:18)
[2020-10-30] MEDS: Ferrous Sulfate 325 MG TAB PO SCH ×2 (08:18→16:53)
[2020-10-30] MEDS: Senokot S 8.6-50 MG TAB PO SCH ×2 (08:18→20:12)
[2020-10-30] MEDS: Gabapentin 300 MG CAP PO SCH ×3 (08:19→20:12)
[2020-10-31] MEDS: Acetaminophen/Codeine 30-300mg Tablet PO PRN ×3 (05:28→22:00)
[2020-10-31] MEDS: Ferrous Sulfate 325 MG TAB PO SCH ×2 (08:18→16:59)
[2020-10-31] MEDS: Ascorbic Acid 500 mg Chewable Tablet PO SCH ×2 (08:18→19:47)
[2020-10-31] MEDS: CeleCOXIB 100 MG CAP PO SCH (08:19)
[2020-10-31] MEDS: Senokot S 8.6-50 MG TAB PO SCH ×2 (08:19→19:47)
[2020-10-31] MEDS: Enoxaparin Sodium 30 MG/0.3 ML SYRINGE SC SCH ×2 (08:19→19:47)
[2020-10-31] MEDS: Bupropion 150 MG XL TAB PO SCH (08:19)
[2020-10-31] MEDS: Gabapentin 300 MG CAP PO SCH ×3 (08:20→19:46)
[2020-10-31 15:02] VITALS: BMI 38.2
[2020-11-01] MEDS: CeleCOXIB 100 MG CAP PO SCH (08:45)
[2020-11-01] MEDS: Enoxaparin Sodium 30 MG/0.3 ML SYRINGE SC SCH ×2 (08:45→19:30)
[2020-11-01] MEDS: Gabapentin 300 MG CAP PO SCH ×3 (08:46→19:31)
[2020-11-01] MEDS: Bupropion 150 MG XL TAB PO SCH (08:47)
[2020-11-01] MEDS: Senokot S 8.6-50 MG TAB PO SCH ×2 (08:47→19:31)
[2020-11-01] MEDS: Ascorbic Acid 500 mg Chewable Tablet PO SCH ×2 (08:48→19:31)
[2020-11-01] MEDS: Cyclobenzaprine 10 MG TAB PO PRN ×2 (08:48→18:32)
[2020-11-01] MEDS: Ferrous Sulfate 325 MG TAB PO SCH ×2 (08:48→16:15)
[2020-11-01] MEDS: Acetaminophen 325 MG TAB PO SCH ×2 (13:04→18:32)
[2020-11-01 19:54] VITALS: BP 122/55; TEMP 98.1
[2020-11-01] MEDS ORDERED: CeleCOXIB 100 MG CAP PO SCH (21:00)
== END 2020-11-01 19:50 | DRG 481 ==
LOC: ERS 14:10 → SURG A 15:45
PROVIDERS: ADMIT Surgery; ATTEND Surgery
PROC: 0QSB04Z Reposition Right Lower Femur with Internal Fixation Device, Open Approach (ICD-10-PCS; principal; 2020-10-21)
PROC: 0PSF04Z Reposition Right Humeral Shaft with Internal Fixation Device, Open Approach (ICD-10-PCS; 2020-10-21)
PROC: 30233N1 Transfusion of Nonautologous Red Blood Cells into Peripheral Vein, Percutaneous Approach (ICD-10-PCS; 2020-10-21)
DX: S72.401A Unspecified fracture of lower end of right femur, initial encounter for closed fracture (principal); S42.351A Displaced comminuted fracture of shaft of humerus, right arm, initial encounter for closed fracture; S42.291A Other displaced fracture of upper end of right humerus, initial encounter for closed fracture; D62 Acute posthemorrhagic anemia; M97.01XA Periprosthetic fracture around internal prosthetic right hip joint, initial encounter; W01.0XXA Fall on same level from slipping, tripping and stumbling without subsequent striking against object, initial encounter; Z20.822 Contact with and (suspected) exposure to COVID-19; E03.9 Hypothyroidism, unspecified; J45.909 Unspecified asthma, uncomplicated; K21.9 Gastro-esophageal reflux disease without esophagitis; Z96.653 Presence of artificial knee joint, bilateral; M19.90 Unspecified osteoarthritis, unspecified site; N20.0 Calculus of kidney; Z90.49 Acquired absence of other specified parts of digestive tract; Z79.899 Other long term (current) drug therapy
CPT/HCPCS: 36415; 36430; 70450; 71045; 71260; 72125; 72170; 74177; 76000; 80048; 80053; 81001; 82533; 83735; 84100; 85025; 85027; 86850; 86900; 86901; 87635; 90471; 90715; 93005; 96374; 96375; C1713; G0390; J0690; J1100; J1650; J1720; J1885; J2270; J2370; J2405; J2704; J3010; J3475; J3490; J7050; P9016; Q9967; U0003; U0005

== ENCOUNTER 2021-07-10 13:34 | Outpatient (CLI) | payer BC, MEDICARE ==
[2021-07-11 01:30] LABS: SARS-CoV-2 PCR by NAA Not Detected (NotDetected)
== END 2021-07-10 13:35 | disposition home or self-care (01) ==
LOC: LABBT 13:34
PROVIDERS: ATTEND Orthopaedic Surgery
DX: Z01.812 Encounter for preprocedural laboratory examination (principal); Z20.822 Contact with and (suspected) exposure to COVID-19
CPT/HCPCS: U0003; U0005

== ENCOUNTER 2021-07-13 06:08 | Inpatient (IN) | payer BC, MEDICARE ==
[2021-07-11 15:34] VITALS: BMI 36.4
[2021-07-13] MEDS ORDERED: ceFAZolin 2 GM/DEX 5% 100 ML BAG ONE (06:24)
[2021-07-13] MEDS ORDERED: Fentanyl 100 MCG/2 ML VIAL ONE ×4 (07:21→12:37)
[2021-07-13] MEDS ORDERED: PROPOFOL 200 MG/20 ML VIAL ONE (07:43)
[2021-07-13] MEDS ORDERED: ePHEDrine 50 MG/ML VIAL ONE (07:43)
[2021-07-13] MEDS ORDERED: Dexamethasone 20 MG/5 ML VIAL ONE (07:43)
[2021-07-13] MEDS ORDERED: Ondansetron PF 4 MG/2 ML Vial ONE (07:43)
[2021-07-13] MEDS ORDERED: Lidocaine 1% PF 5 ML VIAL ONE (07:43)
[2021-07-13] MEDS ORDERED: Dexmedetomidine 200 MCG/2 ML VIAL ONE (11:45)
[2021-07-13] MEDS ORDERED: Ondansetron HCl/PF 4 MG/2 ML Vial IVP PRN ×2 (11:48→13:00)
[2021-07-13] MEDS ORDERED: Promethazine HCl 25 MG/ML VIAL IVPB PRN (11:48)
[2021-07-13] MEDS ORDERED: Promethazine HCl 25 MG/ML VIAL IM PRN (11:48)
[2021-07-13] MEDS ORDERED: HYDROmorphone 0.5 MG/0.5 ML SYRINGE ONE ×3 (12:10→12:56)
[2021-07-13] MEDS ORDERED: Fentanyl 100 MCG/2 ML VIAL SLOW IVP PRN (12:18)
[2021-07-13] MEDS ORDERED: traMADol HCl 50 MG TAB PO PRN (12:18)
[2021-07-13] MEDS ORDERED: Ondansetron PF 4 MG/2 ML Vial IVP PRN (12:18)
[2021-07-13] MEDS ORDERED: Acetaminophen 500 MG TAB PO PRN (12:21)
[2021-07-13] MEDS ORDERED: HYDROcodone/Acetaminophen 5/325 mg Tablet PO PRN (12:21)
[2021-07-13] MEDS ORDERED: Communication Order-Pharmacy FS SCH (12:30)
[2021-07-13] MEDS ORDERED: Bupivacaine HCl 0.5%/Epinephrine 1:200,000/PF 30 ml Vial ONE (12:45)
[2021-07-13] MEDS ORDERED: Non-Formulary Medication 1 EACH PO PRN (12:55)
[2021-07-13] MEDS ORDERED: HYDROmorphone 2 MG/ML VIAL SLOW IVP PRN (13:00)
[2021-07-13] MEDS ORDERED: Promethazine HCl 25 MG/ML VIAL IM/IV PRN (13:00)
[2021-07-13] MEDS ORDERED: FLU VACC QS2021-22(65YR UP)/PF 240 MCG/0.7 ML SYRINGE IM ONE (14:45)
[2021-07-13] MEDS: HYDROcodone/Acetaminophen 10/325 mg Tablet PO PRN ×3 (15:09→23:36)
[2021-07-13] MEDS: Gabapentin 300 MG CAP PO SCH ×2 (15:09→20:56)
[2021-07-13] MEDS: ceFAZolin Sodium/D5W 2 GM in Premix Bag 1 BAG IVPB SCH ×2 (15:22→23:36)
[2021-07-13] MEDS: Aspirin 81 mg Enteric Coated Tablet PO SCH (20:56)
[2021-07-13] MEDS: Ascorbic Acid 500 mg Chewable Tablet PO SCH (20:56)
[2021-07-14 05:36] LABS: Mean Corpuscular HGB CONC 34.1 g/dL (32.0-36.0); Mean Corpuscular Hemoglobin 33.1 pg (27.0-31.0); Mean Corpuscular Volume 97.1 fL (78.0-98.0); Mean Platelet Volume 6.5 fL (7.4-10.4); Platelet Count 248 thou/uL (130-400); RBC Distribution Width 11.8 % (11.5-14.5); Red Blood Cell (RBC) Count 2.73 mill/uL (4.20-5.40); White Blood Cell (WBC) Count 9.5 thou/uL (4.8-10.8)
[2021-07-14 05:45] LABS: ALT (SGPT) 9 U/L (8-55); AST (SGOT) 16 U/L (5-34); Albumin 2.8 g/dL (3.4-4.8); Alkaline Phosphatase 89 U/L (40-110); Anion Gap 10 mmol/L (10-20); BUN (Urea Nitrogen) 11 mg/dL (9.8-20.1); Bilirubin, Total 0.5 mg/dL (0.2-1.2); Calc. Creatinine Clearance 121 mL/min (70-130); Calcium 8.1 mg/dL (7.8-10.44); Carbon Dioxide 28 mmol/L (23-31); Chloride 102 mmol/L (98-107); Globulin 2.2 g/dL (2.4-3.5); Glucose 144 mg/dL (80-115); Potassium 3.9 mmol/L (3.5-5.1); Sodium 136 mmol/L (136-145)
[2021-07-14 06:55] LABS: Band 10 % (5-11); Lymphocytes 13 % (21-51); MDiff Complete? YES; Monocytes 6 % (0-10); Neutrophil 71 % (42-75)
[2021-07-14] MEDS: Aspirin 81 mg Enteric Coated Tablet PO SCH ×2 (08:59→21:30)
[2021-07-14] MEDS: Bupropion 150 MG XL TAB PO SCH (08:59)
[2021-07-14] MEDS: Gabapentin 300 MG CAP PO SCH ×3 (08:59→21:30)
[2021-07-14] MEDS: Ascorbic Acid 500 mg Chewable Tablet PO SCH ×2 (08:59→21:30)
[2021-07-14] MEDS ORDERED: Albuterol 200 PUFF (6.7GM INHALER) INH PRN (09:00)
[2021-07-14] MEDS: HYDROcodone/Acetaminophen 10/325 mg Tablet PO PRN ×3 (09:01→17:09)
[2021-07-15] MEDS: HYDROcodone/Acetaminophen 10/325 mg Tablet PO PRN ×6 (00:24→22:42)
[2021-07-15] MEDS: Ascorbic Acid 500 mg Chewable Tablet PO SCH ×2 (08:47→20:23)
[2021-07-15] MEDS: Aspirin 81 mg Enteric Coated Tablet PO SCH ×2 (08:47→20:23)
[2021-07-15] MEDS: Bupropion 150 MG XL TAB PO SCH (08:47)
[2021-07-15] MEDS: Gabapentin 300 MG CAP PO SCH ×3 (08:47→20:23)
[2021-07-16] MEDS: HYDROcodone/Acetaminophen 10/325 mg Tablet PO PRN ×3 (03:28→16:19)
[2021-07-16 05:40] LABS: Hemoglobin 7.3 g/dL (12.0-16.0); Mean Corpuscular HGB CONC 32.8 g/dL (32.0-36.0); Mean Corpuscular Hemoglobin 31.9 pg (27.0-31.0); Mean Corpuscular Volume 97.3 fL (78.0-98.0); Mean Platelet Volume 6.8 fL (7.4-10.4); Platelet Count 216 thou/uL (130-400); RBC Distribution Width 11.3 % (11.5-14.5); Red Blood Cell (RBC) Count 2.29 mill/uL (4.20-5.40); White Blood Cell (WBC) Count 7.9 thou/uL (4.8-10.8)
[2021-07-16] MEDS: Aspirin 81 mg Enteric Coated Tablet PO SCH ×2 (08:58→19:25)
[2021-07-16] MEDS: Gabapentin 300 MG CAP PO SCH ×3 (08:59→19:25)
[2021-07-16] MEDS: Bupropion 150 MG XL TAB PO SCH (08:59)
[2021-07-16] MEDS: Ascorbic Acid 500 mg Chewable Tablet PO SCH ×2 (08:59→19:25)
[2021-07-17] MEDS: HYDROcodone/Acetaminophen 10/325 mg Tablet PO PRN ×4 (01:39→19:49)
[2021-07-17] MEDS: Gabapentin 300 MG CAP PO SCH ×3 (09:10→19:48)
[2021-07-17] MEDS: Aspirin 81 mg Enteric Coated Tablet PO SCH ×2 (09:10→19:48)
[2021-07-17] MEDS: Bupropion 150 MG XL TAB PO SCH (09:10)
[2021-07-17] MEDS: Ascorbic Acid 500 mg Chewable Tablet PO SCH ×2 (09:10→19:48)
[2021-07-18] MEDS: HYDROcodone/Acetaminophen 10/325 mg Tablet PO PRN ×4 (00:26→20:14)
[2021-07-18 07:31] LABS: #Eosinphils 0.5 thou/uL (0.0-0.7); #Lymphocytes 1.5 thou/uL (1.20-3.40); #Monocytes 0.8 thou/uL (0.11-0.59); #Neutrophils 2.7 thou/uL (1.40-6.50); %Basophils 0.8 % (0.0-1.0); %Eosinophils 9.4 % (0.0-10.0); %Lymphocytes 27.6 % (21.0-51.0); %Monocytes 13.7 % (0.0-10.0); %Neutrophils 48.6 % (42.0-75.0); Mean Corpuscular HGB CONC 32.3 g/dL (32.0-36.0); Mean Corpuscular Hemoglobin 31.9 pg (27.0-31.0); Mean Corpuscular Volume 98.9 fL (78.0-98.0); Mean Platelet Volume 6.2 fL (7.4-10.4); Platelet Count 304 thou/uL (130-400); RBC Distribution Width 11.5 % (11.5-14.5); Red Blood Cell (RBC) Count 2.18 mill/uL (4.20-5.40); White Blood Cell (WBC) Count 5.5 thou/uL (4.8-10.8)
[2021-07-18] MEDS: Gabapentin 300 MG CAP PO SCH ×3 (08:51→20:15)
[2021-07-18] MEDS: Aspirin 81 mg Enteric Coated Tablet PO SCH ×2 (08:51→20:14)
[2021-07-18] MEDS: Ascorbic Acid 500 mg Chewable Tablet PO SCH ×2 (08:51→20:15)
[2021-07-18] MEDS: Bupropion 150 MG XL TAB PO SCH (08:51)
[2021-07-19] MEDS: HYDROcodone/Acetaminophen 10/325 mg Tablet PO PRN ×3 (04:27→12:40)
[2021-07-19] MEDS: Bupropion 150 MG XL TAB PO SCH (08:50)
[2021-07-19] MEDS: Gabapentin 300 MG CAP PO SCH (08:50)
[2021-07-19] MEDS: Ascorbic Acid 500 mg Chewable Tablet PO SCH (08:51)
[2021-07-19] MEDS: Aspirin 81 mg Enteric Coated Tablet PO SCH (08:52)
[2021-07-19 10:16] LABS: Hemoglobin 8.6 g/dL (12.0-16.0); Mean Corpuscular HGB CONC 32.6 g/dL (32.0-36.0); Mean Corpuscular Hemoglobin 31.4 pg (27.0-31.0); Mean Corpuscular Volume 96.3 fL (78.0-98.0); Mean Platelet Volume 6.3 fL (7.4-10.4); Platelet Count 357 thou/uL (130-400); RBC Distribution Width 11.9 % (11.5-14.5); Red Blood Cell (RBC) Count 2.73 mill/uL (4.20-5.40); White Blood Cell (WBC) Count 6.3 thou/uL (4.8-10.8)
[2021-07-19 11:53] LABS: Band 4 % (5-11); Eosinophils 10 % (0-10); Lymphocytes 22 % (21-51); MDiff Complete? YES; Metamyelocyte 1 % (0-0); Monocytes 14 % (0-10); Myelocyte 1 % (0-0); Neutrophil 46 % (42-75); Platelet Morphology Comment Appears Adequate; Polychromasia SLIGHT = 2-3 cells (100X) (0-2/hpf)
[2021-07-19 12:35] VITALS: BP 139/80; TEMP 98.4
[2021-07-19] MEDS ORDERED: Senokot S 8.6-50 MG TAB PO SCH (21:00)
== END 2021-07-19 13:04 | disposition home or self-care (01) | DRG 482 ==
LOC: SDC 06:08 → SURG B 13:07
PROVIDERS: ADMIT Orthopaedic Surgery; ATTEND Orthopaedic Surgery
PROC: 0QSB06Z Reposition Right Lower Femur with Intramedullary Internal Fixation Device, Open Approach (ICD-10-PCS; principal; 2021-07-13)
PROC: 0QPB04Z Removal of Internal Fixation Device from Right Lower Femur, Open Approach (ICD-10-PCS; 2021-07-13)
PROC: 0QUB07Z Supplement Right Lower Femur with Autologous Tissue Substitute, Open Approach (ICD-10-PCS; 2021-07-13)
PROC: 0QB20ZZ Excision of Right Pelvic Bone, Open Approach (ICD-10-PCS; 2021-07-13)
DX: S72.401K Unspecified fracture of lower end of right femur, subsequent encounter for closed fracture with nonunion (principal); F32.9 Major depressive disorder, single episode, unspecified; Z20.822 Contact with and (suspected) exposure to COVID-19; Z90.49 Acquired absence of other specified parts of digestive tract; Z98.890 Other specified postprocedural states; Z79.51 Long term (current) use of inhaled steroids
CPT/HCPCS: 36415; 36430; 76000; 80053; 85025; 85027; 86850; 86900; 86901; C1713; J1100; J1170; J2405; J2704; J3010; J3370; J3490; P9016; U0003; U0005

== ENCOUNTER 2022-10-16 09:50 | Outpatient (CLI) | payer BC, MEDICARE ==
[2022-10-16 10:56] LABS: #Basophils 0.1 10x3/uL (0.0-0.2); #Eosinphils 0.5 10x3/uL (0.0-0.5); #Monocytes 0.8 10x3/uL (0.0-1.1); #Neutrophils 4.2 10x3/uL (1.5-8.4); %Basophils 1.3 % (0.0-2.0); %Eosinophils 7.1 % (0.0-6.0); %Lymphocytes 21.6 % (18.0-47.0); %Monocytes 11.4 % (0.0-10.0); %Neutrophils 58.2 % (40.0-75.0); Mean Corpuscular HGB CONC 31.6 g/dL (32.0-36.0); Mean Corpuscular Hemoglobin 28.3 pg (27.0-33.0); Mean Corpuscular Volume 89.6 fl (81.6-98.3); Mean Platelet Volume 9.5 fl (7.4-10.4); Platelet Count 296 10x3/uL (150-450); RBC Distribution Width 13.7 % (11.5-14.5); Red Blood Cell (RBC) Count 4.24 10x6/uL (3.90-5.03); White Blood Cell (WBC) Count 7.2 10x3/uL (3.5-10.5)
[2022-10-16 11:07] LABS: INR-International Normal Ratio 0.9; Prothrombin Time 9.7 sec (9.5-12.1)
[2022-10-16 11:10] LABS: Anion Gap 13 mmol/L (10-20); BUN (Urea Nitrogen) 20 mg/dL (9.8-20.1); Calc. Creatinine Clearance 0 mL/min (70-130); Calcium 8.9 mg/dL (7.8-10.44); Carbon Dioxide 24 mmol/L (23-31); Chloride 107 mmol/L (98-107); Estimated GFR 74; Glucose 111 mg/dL (83-110); Potassium 4.3 mmol/L (3.5-5.1); Sodium 140 mmol/L (136-145)
== END 2022-10-16 09:51 | disposition home or self-care (01) ==
LOC: LABBT 09:50
PROVIDERS: ATTEND Orthopaedic Surgery
DX: Z01.818 Encounter for other preprocedural examination (principal); M17.11 Unilateral primary osteoarthritis, right knee
CPT/HCPCS: 80048; 85025; 85610; 87081; 93005; 93010

== ENCOUNTER 2022-10-22 08:20 | Inpatient (IN) | payer BC, MEDICARE ==
[2022-10-21 11:21] VITALS: BMI 37.9
[2022-10-22] MEDS ORDERED: Vancomycin (BATCH) 1.5 GRAM/300 ML BAG ONE (08:49)
[2022-10-22] MEDS ORDERED: Sodium Chloride 0.9% 100 ML ONE ×2 (08:49→10:53)
[2022-10-22] MEDS ORDERED: Tranexamic Acid 1,000 MG/10 ML VIAL ONE (08:49)
[2022-10-22] MEDS ORDERED: FENTANYL 50 MCG/ML 1 ML VIAL ONE (09:53)
[2022-10-22] MEDS ORDERED: Bupivacaine PF 0.5% 30 ML VIAL ONE ×2 (09:53→10:40)
[2022-10-22] MEDS ORDERED: EPINEPHrine 1 MG/ML AMP ONE (09:53)
[2022-10-22] MEDS ORDERED: Midazolam HCl 2 mg/2 ml Vial ONE (09:53)
[2022-10-22 10:09] LABS: SARS-CoV-2 NAA Rapid Test Not Detected (NotDetected)
[2022-10-22] MEDS ORDERED: Fentanyl 100 MCG/2 ML VIAL IV PRN (10:19)
[2022-10-22] MEDS ORDERED: Zolpidem Tartrate 5 MG TAB PO PRN ×2 (10:30→10:40)
[2022-10-22] MEDS ORDERED: Ondansetron PF 4 MG/2 ML Vial IVP PRN ×2 (10:30→10:40)
[2022-10-22] MEDS ORDERED: Ropivacaine 0.2% 550 ML 550 ML NERVE BLCK SCH (10:30)
[2022-10-22] MEDS ORDERED: Promethazine HCl 25 MG/ML VIAL IM PRN ×3 (10:30→12:02)
[2022-10-22] MEDS ORDERED: Fentanyl 100 MCG/2 ML VIAL SLOW IVP PRN ×2 (10:30→10:42)
[2022-10-22] MEDS ORDERED: Acetaminophen 325 MG TAB PO PRN (10:40)
[2022-10-22] MEDS ORDERED: diphenhydrAMINE 25 MG CAP PO PRN (10:40)
[2022-10-22] MEDS ORDERED: HYDROcodone/Acetaminophen 10/325 mg Tablet PO PRN ×2 (10:42)
[2022-10-22] MEDS ORDERED: CEFAZOLIN 2 GM VIAL ONE (10:53)
[2022-10-22] MEDS ORDERED: fentaNYL PF 100 MCG/2 ML SYRINGE ONE (11:05)
[2022-10-22] MEDS ORDERED: Famotidine/PF 20 mg/2ml Vial ONE (11:05)
[2022-10-22] MEDS ORDERED: PHENYLEPHRINE-NS 100 MCG/ML 10 ML SYRINGE ONE ×2 (11:09→11:24)
[2022-10-22] MEDS ORDERED: Ondansetron PF 4 MG/2 ML Vial ONE (11:09)
[2022-10-22] MEDS ORDERED: Lidocaine 1% PF 5 ML VIAL ONE (11:09)
[2022-10-22] MEDS ORDERED: Ketorolac Tromethamine 30 MG/ML VIAL ONE (11:09)
[2022-10-22] MEDS ORDERED: PROPOFOL 200 MG/20 ML VIAL ONE (11:09)
[2022-10-22] MEDS ORDERED: PACU-Morphine 4MG/ML VIAL SLOW IVP PRN (12:02)
[2022-10-22] MEDS ORDERED: HYDROmorphone 2 MG/ML VIAL SLOW IVP PRN (13:12)
[2022-10-22] MEDS ORDERED: HYDROmorphone 0.5 MG/0.5 ML SYRINGE ONE ×3 (13:13→13:46)
[2022-10-22] MEDS: Ketorolac Tromethamine 30 MG/ML VIAL IVP SCH ×3 (16:44→23:48)
[2022-10-22] MEDS: Gabapentin 300 MG CAP PO SCH ×2 (16:45→20:54)
[2022-10-22] MEDS: HYDROcodone/Acetaminophen 10/325 mg Tablet PO PRN ×2 (16:46→20:54)
[2022-10-22] MEDS: Sodium Chloride 0.9% 1,000 ML IV SCH ×2 (18:04→20:55)
[2022-10-22] MEDS: Ferrous Gluconate 324 MG TAB PO SCH (18:24)
[2022-10-22] MEDS: Senokot S 8.6-50 MG TAB PO SCH (20:54)
[2022-10-22] MEDS: Aspirin 81 mg Enteric Coated Tablet PO SCH (20:54)
[2022-10-22] MEDS: CEFAZOLIN 2 GM in Sodium Chloride 0.9% 100 ML IVPB SCH (20:55)
[2022-10-23] MEDS: CEFAZOLIN 2 GM in Sodium Chloride 0.9% 100 ML IVPB SCH (03:20)
[2022-10-23] MEDS: Sodium Chloride 0.9% 1,000 ML IV SCH ×2 (04:47→17:24)
[2022-10-23] MEDS: Ketorolac Tromethamine 30 MG/ML VIAL IVP SCH ×3 (05:12→17:23)
[2022-10-23] MEDS: HYDROcodone/Acetaminophen 10/325 mg Tablet PO PRN ×5 (05:16→22:38)
[2022-10-23 06:05] LABS: Hemoglobin 10.4 g/dL (12.0-16.0); Mean Corpuscular HGB CONC 31.8 g/dL (32.0-36.0); Mean Corpuscular Hemoglobin 29.8 pg (27.0-31.0); Mean Corpuscular Volume 93.6 fl (78.0-98.0); Mean Platelet Volume 7.4 fL (7.4-10.4); Platelet Count 208 10x3/uL (130-400); RBC Distribution Width 12.5 % (11.5-14.5); White Blood Cell (WBC) Count 9.1 10x3/uL (4.8-10.8)
[2022-10-23] MEDS: Bupropion 150 MG XL TAB PO SCH (08:44)
[2022-10-23] MEDS: Aspirin 81 mg Enteric Coated Tablet PO SCH ×2 (08:44→20:40)
[2022-10-23] MEDS: Senokot S 8.6-50 MG TAB PO SCH ×2 (08:45→20:41)
[2022-10-23] MEDS: Gabapentin 300 MG CAP PO SCH ×3 (08:45→20:41)
[2022-10-23] MEDS: Ferrous Gluconate 324 MG TAB PO SCH ×2 (08:45→17:23)
[2022-10-23] MEDS: Multivitamin W/ Minerals 1 TAB PO SCH (08:45)
[2022-10-23] MEDS ORDERED: CeleCOXIB 100 MG CAP PO SCH (09:00)
[2022-10-24] MEDS: Ketorolac Tromethamine 30 MG/ML VIAL IVP SCH ×2 (00:14→05:48)
[2022-10-24] MEDS: Sodium Chloride 0.9% 1,000 ML IV SCH ×3 (00:18→20:21)
[2022-10-24] MEDS: HYDROcodone/Acetaminophen 10/325 mg Tablet PO PRN ×3 (09:18→20:19)
[2022-10-24] MEDS: Bupropion 150 MG XL TAB PO SCH (09:20)
[2022-10-24] MEDS: Gabapentin 300 MG CAP PO SCH ×3 (09:20→20:20)
[2022-10-24] MEDS: Ferrous Gluconate 324 MG TAB PO SCH ×2 (09:20→17:18)
[2022-10-24] MEDS: Aspirin 81 mg Enteric Coated Tablet PO SCH ×2 (09:20→20:20)
[2022-10-24] MEDS: Multivitamin W/ Minerals 1 TAB PO SCH (09:21)
[2022-10-24] MEDS: Senokot S 8.6-50 MG TAB PO SCH ×2 (09:21→20:20)
[2022-10-25] MEDS: HYDROcodone/Acetaminophen 10/325 mg Tablet PO PRN ×6 (03:39→22:24)
[2022-10-25] MEDS: Bupropion 150 MG XL TAB PO SCH (09:15)
[2022-10-25] MEDS: Senokot S 8.6-50 MG TAB PO SCH ×2 (09:15→20:50)
[2022-10-25] MEDS: Aspirin 81 mg Enteric Coated Tablet PO SCH ×2 (09:15→20:49)
[2022-10-25] MEDS: Gabapentin 300 MG CAP PO SCH ×3 (09:16→20:49)
[2022-10-25] MEDS: Multivitamin W/ Minerals 1 TAB PO SCH (09:16)
[2022-10-25] MEDS: Ferrous Gluconate 324 MG TAB PO SCH ×2 (09:16→17:57)
[2022-10-25] MEDS: Sodium Chloride 0.9% 1,000 ML IV SCH (09:17)
[2022-10-26] MEDS: Sodium Chloride 0.9% 1,000 ML IV SCH ×2 (03:26→04:45)
[2022-10-26] MEDS: HYDROcodone/Acetaminophen 10/325 mg Tablet PO PRN ×3 (04:09→12:43)
[2022-10-26] MEDS: Ferrous Gluconate 324 MG TAB PO SCH (08:39)
[2022-10-26] MEDS: Gabapentin 300 MG CAP PO SCH (08:40)
[2022-10-26] MEDS: Senokot S 8.6-50 MG TAB PO SCH (08:40)
[2022-10-26] MEDS: Multivitamin W/ Minerals 1 TAB PO SCH (08:40)
[2022-10-26] MEDS: Bupropion 150 MG XL TAB PO SCH (08:40)
[2022-10-26] MEDS: Aspirin 81 mg Enteric Coated Tablet PO SCH (08:41)
[2022-10-26 11:43] VITALS: BP 153/66; TEMP 98.6
== END 2022-10-26 14:30 | disposition swing bed (61) | DRG 470 ==
LOC: SDC 08:20 → SJJU 09:00 → OBSVTOIN 10-23 13:05
PROVIDERS: ADMIT Orthopaedic Surgery; ATTEND Orthopaedic Surgery
PROC: 0SRC0J9 Replacement of Right Knee Joint with Synthetic Substitute, Cemented, Open Approach (ICD-10-PCS; principal; 2022-10-22)
PROC: 0QPB04Z Removal of Internal Fixation Device from Right Lower Femur, Open Approach (ICD-10-PCS; 2022-10-22)
DX: M17.0 Bilateral primary osteoarthritis of knee (principal); Z20.822 Contact with and (suspected) exposure to COVID-19; F32.A Depression, unspecified; J45.909 Unspecified asthma, uncomplicated; Z96.643 Presence of artificial hip joint, bilateral; Z86.16 Personal history of COVID-19; Z90.49 Acquired absence of other specified parts of digestive tract; Z98.890 Other specified postprocedural states; Z79.899 Other long term (current) drug therapy; Z83.3 Family history of diabetes mellitus; Z83.79 Family history of other diseases of the digestive system
CPT/HCPCS: 36415; 85027; 96365; 96375; 96376; A4306; C1713; C1776; G0378; J0171; J1170; J1885; J2250; J2405; J2704; J2795; J3010; J3370; J3490; S0020; S0028; U0002